=== PATIENT | male | born 1965 | race Caucasian/White ===

== ENCOUNTER 2017-04-26 14:07 | Emergency (ER) | payer BC, OTHER ==
[2017-04-26 14:30] VITALS: RESP 18
[2017-04-26 16:06] LABS: BASO # 0.3 K/uL (0.0-0.2); EOS # 0.2 K/uL (0.0-0.7); HEMOGLOBIN 15.1 g/dL (12.0-18.0); LYMPH # 4.2 K/uL (1.0-4.3); LYMPH % 27.2 % (20.0-40.0); MEAN CELL VOLUME 89.7 fL (80.0-94.0); MEAN CORPUSCULAR HEMOGLOBIN 31.3 pg (27.0-31.0); MEAN CORPUSCULAR HGB CONC 34.8 g/dL (33.0-37.0); MEAN PLATELET VOLUME 8.7 fL (7.2-11.7); MONO # 1.2 K/uL (0.0-0.8); MONO % 7.8 % (0.0-10.0); NEUT # 9.5 K/uL (1.8-7.0); RBC 4.84 Mil/uL (4.40-5.90); RED CELL DISTRIBUTION WIDTH 13.2 % (11.5-14.5); WHITE BLOOD COUNT 15.4 K/uL (4.8-10.8)
[2017-04-26 16:14] LABS: ALB/GLOB RATIO 1.2 (1.0-2.1); ALBUMIN 4.1 g/dL (3.5-5.0); ALT/SGPT 29 U/L (21-72); AST/SGOT 24 U/L (17-59); BLOOD UREA NITROGEN 17 mg/dL (9-20); CALCIUM 8.6 mg/dl (8.6-10.4); GFR AFRICAN-AMERICAN > 60; GFR NON-AFRICAN AMERICAN > 60
--- NOTE | 2017-04-26 16:49 | C.PDOC ---
History Of Present Illness 51-year-old male, presents to the emergency department with complaints of 2-3 day history of a painful boil to the rectal area. Patient notes pain worsens when trying to have a bowel movement, and he notes episodes of blood in stool. Denies abdominal pain, nausea/vomiting, fevers, chills, shortness of breath or chest pain. Patient reports a Hx of abscess/I&D in the area several years ago. Time Seen by Provider: 04/26/17 14:34 Chief Complaint (Nursing): GI Problem History Per: Patient History/Exam Limitations: no limitations Onset/Duration Of Symptoms: Days Current Symptoms Are (Timing): Still Present Severity: Moderate Past Medical History Reviewed: Historical Data, Nursing Documentation, Vital Signs Vital Signs: Last Vital Signs Temp 98.2 F 04/26/17 19:06 Pulse 82 04/26/17 19:06 Resp 18 04/26/17 19:06 BP 117/72 04/26/17 19:06 Pulse Ox 98 04/27/17 16:14 - Medical History PMH: Rheumatoid Arthritis - [facility] Procedures INJECT/INFUSE NEC (10/24/13) Family History: States: No Known Family Hx - Social History Hx Alcohol Use: Yes Hx Substance Use: No - Immunization History Hx Tetanus Toxoid Vaccination: No Hx Influenza Vaccination: No Hx Pneumococcal Vaccination: No Review Of Systems Except As Marked, All Systems Reviewed And Found Negative. Constitutional: Negative for: Fever Cardiovascular: Negative for: Chest Pain Respiratory: Negative for: Shortness of Breath Gastrointestinal: Negative for: Vomiting, Abdominal Pain Neurological: Negative for: Weakness, Numbness, Headache, Dizziness Physical Exam - Physical Exam Appears: Non-toxic, No Acute Distress Skin: Normal Color, Warm, Dry, No Rash Head: Atraumatic, Normacephalic Nose: Normal Oral Mucosa: Moist Lips: Normal Appearing Neck: Normal ROM Chest: Symmetrical Cardiovascular: Rhythm Regular, No Murmur Respiratory: Normal Breath Sounds, No Accessory Muscle Use Rectal: Other ( tender 1cm indurated erythematous lump to the 10 o clock position) Extremity: Normal ROM Neurological/Psych: Oriented x3, Normal Speech ED Course And Treatment - Laboratory Results Result Diagrams: 04/26/17 15:59 04/26/17 15:59 O2 Sat by Pulse Oximetry: 98 (on RA) Pulse Ox Interpretation: Normal Progress Note: CT scan shows no abscess this is most likely a tender hemorrhoid. Will treat with sitz baths. No evidence of cellulitis on exam. Disposition - Disposition Referrals: at [facility] [Outside] Disposition: HOME/ ROUTINE Disposition Time: 18:17 Condition: GOOD Additional Instructions: Do sitz baths three times per day. Apply cream to area and do not strain while having a bowel movement, Follow up with the medical doctor within 1-2 days. Return if worsened. Prescriptions: Docusate [Colace] 100 mg PO DAILY #30 cap Hydrocortisone 2.5% (Rectal) [Anusol-Hc] 1 appl RC BID #1 tube Ibuprofen [Motrin Tab] 800 mg PO TID #20 tab Instructions: Hemorrhoids (ED) Forms: [facility] [facility] (T[place]anian) - Clinical Impression Clinical Impression: Hemorrhoids - Scribe Statement The provider has reviewed the documentation as recorded by the Scribe (Shayy Watson) All medical record entries made by the Scribe were at my direction and personally dictated by me. I have reviewed the chart and agree that the record accurately reflects my personal performance of the history, physical exam, medical decision making, and the department course for this patient. I have also personally directed, reviewed, and agree with the discharge instructions and disposition.
[2017-04-26] MEDS ORDERED: Iodixanol 320 MG/ML 100 ML BOTTLE IV ONE (17:11)
[2017-04-26 19:08] VITALS: BP 117/72; PULSE 82; TEMP 98.2
--- NOTE | 2017-04-27 09:47 | CT ---
CT abdomen and pelvis History: Rectal pain. Evaluate for rectal abscess. Comparison: None available. Technique: Multiple contiguous axial images were performed through the abdomen and pelvis with the use of intravenous contrast. Subsequently, sagittal coronal reformatted images were obtained. This CT exam was performed using one or more of the following dose reduction techniques: Automated exposure control, adjustment of the mA and/or kV according to patient size, and/or use of iterative reconstruction technique. Findings: Coronary artery disease. 2 millimeter ground-glass nodule within the right middle lobe on series 3, image 10. Mild atelectasis in the right middle lobe. Fatty infiltration of the liver. Gallbladder appears preserved. Spleen appears preserved. Pancreas appears preserved. Adrenal glands appear preserved. Low-attenuation lesion in the right kidney measuring 1.4 centimeters demonstrating a Hounsfield unit attenuation of 16 suggestive for a cyst. This may be better delineated with multiphasic CT or MR if clinically indicated. Visualized bowel appears grossly preserved. Under distended mid to distal transverse colon. No gross perirectal abscess identified. Appendix appears grossly preserved. Urinary bladder appears preserved. No significant abdominal or pelvic ascites. Degenerative changes in the spine. Umbilical and supraumbilical hernia containing fat. Few shotty para-aortic and mesenteric lymph nodes. Impression: Negative acute. No significant perirectal abscess identified. Additional findings as above. These findings were preliminarily reported at 6:12 p.m. on 04/26/[address] Terence Silver from [facility].
[2017-04-27 16:14] VITALS: O2SAT 98
== END 2017-04-26 19:06 | disposition home or self-care (01) ==
LOC: C.ER 14:07
DX: K64.9 Unspecified hemorrhoids (principal); M06.9 Rheumatoid arthritis, unspecified
CPT/HCPCS: 74177; 80053; 85025; 99284; Q9967

== ENCOUNTER 2017-05-14 09:06 | Day surgery (SDC) | payer BC ==
[2017-05-14 09:29] VITALS: BMI 32.1
[2017-05-14] MEDS ORDERED: Propofol 10 mg/ml Inj (20 ML) ONE (11:34)
[2017-05-14] MEDS ORDERED: Lactated Ringer's 1,000 ML IV ONE (11:35)
[2017-05-14 12:29] VITALS: TEMP 98
[2017-05-14 12:30] VITALS: RESP 12
[2017-05-14 13:03] VITALS: BP 112/76; PULSE 67; O2SAT 100
== END 2017-05-14 13:01 | disposition home or self-care (01) ==
LOC: C.ENDO 09:06
PROVIDERS: ATTEND Internal Medicine Gastroenterology
DX: K62.5 Hemorrhage of anus and rectum (principal); K64.8 Other hemorrhoids; Z79.899 Other long term (current) drug therapy; M10.9 Gout, unspecified; E66.9 Obesity, unspecified; Z68.33 Body mass index [BMI] 33.0-33.9, adult; E55.9 Vitamin D deficiency, unspecified
CPT/HCPCS: 45378; J2704; J7120